=== PATIENT | female | born 1995 | race Caucasian/White ===

== ENCOUNTER 2021-08-30 09:33 | Emergency (ER) | payer OTHER ==
[~2021-08-30] VITALS: Ht 154.9 cm; Wt 51.7 kg
[2021-08-30 10:20] LABS: BILIRUBIN Negative (Negative); BLOOD Negative (Negative); CLARITY Cloudy (Clear); COLOR Yellow (Yellow); GLUCOSE Negative (Negative); KETONE Negative (Negative); LEUKO ESTERASE 1+ (Negative); NITRITE Negative (Negative); PH 5.5 (4.5-8.0); UROBILINOGEN 0.2 E.U./dl (0.0-1.0)
[2021-08-30 10:29] LABS: HEMATOCRIT 39.3 % (37.0-47.0); MEAN CELL VOLUME 92.3 fl (81.0-99.0); MEAN CORPUSCULAR HGB 29.3 pg (27.0-31.0); MEAN CORPUSCULAR HGB CONC 31.8 g/dl (33.0-37.0); MEAN PLATELET VOLUME 11.8 fl (9.6-12.3); PLATELET COUNT AUTOMATED 161 10*3/uL (130-400); RED BLOOD COUNT 4.26 10*6/uL (4.10-5.10); RED CELL DISTRI WIDTH 14.4 % (0-14.5); WHITE BLOOD COUNT 9.6 10*3/uL (4.8-10.8)
[2021-08-30 10:37] LABS: RBC 0-2 rbc/hpf (0-2)
[2021-08-30 10:38] LABS: BACTERIA 3+; EPITHELIAL CELLS 16-20
[2021-08-30 10:51] LABS: MANUAL DIFF REFLEX YES
[2021-08-30 10:56] LABS: BASOPHILS 1 % (0-1); PLATELET SUFFICIENCY NORMAL (NORMAL); TOTAL CELLS COUNTED 100 #CELLS
[2021-08-30 11:00] LABS: ALKALINE PHOSPHATASE 77 U/L (45-117); BUN 12 mg/dl (7-24); CHLORIDE 110 mmol/L (98-107); POTASSIUM 4.4 mmol/L (3.5-5.1); SGOT/AST 14 IU/L (3-35); SGPT/ALT 18 U/L (12-78); SODIUM 142 mmol/L (136-145); TOTAL PROTEIN 6.6 gm/dL (6.4-8.2)
== END 2021-08-30 13:14 | disposition home or self-care (01) ==
LOC: ED 09:33
PROVIDERS: Emergency Medicine
DX: R10.9 Unspecified abdominal pain (principal); F17.200 Nicotine dependence, unspecified, uncomplicated

== ENCOUNTER 2021-09-28 07:28 | Emergency (ER) | payer OTHER ==
[2021-09-28 07:51] LABS: BILIRUBIN Negative (Negative); BLOOD Negative (Negative); CLARITY Cloudy (Clear); COLOR Yellow (Yellow); GLUCOSE Negative (Negative); KETONE Negative (Negative); LEUKO ESTERASE 2+ (Negative); NITRITE Negative (Negative); PH 5.5 (4.5-8.0); UROBILINOGEN 0.2 E.U./dl (0.0-1.0)
[2021-09-28 07:59] LABS: BASO % 0.5 % (0.0-1.0); EOS # 0.1 10*3/uL (0.0-0.4); EOS % 0.8 % (1.0-4.0); HEMATOCRIT 40.5 % (37.0-47.0); LYMPH # 1.6 10*3/uL (1.3-4.4); LYMPH % 24.9 % (27.0-41.0); MEAN CELL VOLUME 91.6 fl (81.0-99.0); MEAN CORPUSCULAR HGB 29.2 pg (27.0-31.0); MEAN CORPUSCULAR HGB CONC 31.9 g/dl (33.0-37.0); MEAN PLATELET VOLUME 11.6 fl (9.6-12.3); MONO # 0.4 10*3/uL (0.1-1.0); MONO % 6.7 % (3.0-9.0); NEUT # 4.4 10*3/uL (2.3-7.9); NEUT % 66.8 % (47.0-73.0); PLATELET COUNT AUTOMATED 142 10*3/uL (130-400); RED BLOOD COUNT 4.42 10*6/uL (4.10-5.10); RED CELL DISTRI WIDTH 14.2 % (0-14.5); WHITE BLOOD COUNT 6.6 10*3/uL (4.8-10.8)
[2021-09-28 08:12] LABS: BACTERIA 3+; WBC 16-20 wbc/hpf (0-5)
[2021-09-28 08:13] LABS: RBC 0-2 rbc/hpf (0-2)
[2021-09-28 08:13] LABS: ALKALINE PHOSPHATASE 64 U/L (45-117); BUN 9 mg/dl (7-24); CHLORIDE 111 mmol/L (98-107); CREATININE 0.68 mg/dL (0.55-1.02); LIPASE 132 U/L (73-393); POTASSIUM 4.1 mmol/L (3.5-5.1); SGOT/AST 15 IU/L (3-35); SGPT/ALT 19 U/L (12-78); SODIUM 140 mmol/L (136-145); TOTAL PROTEIN 6.7 gm/dL (6.4-8.2)
[2021-09-28] MEDS ORDERED: NAPROXEN250 MG PO (08:50)
[2021-09-28] MEDS ORDERED: TYLENOL325 M1 PO (08:50)
[2021-10-01] MEDS ORDERED: DOXYCYCLINE50 M2 PO (13:13)
[2021-10-01] MEDS ORDERED: ASPIRIN CHEWABL81 MG PO (13:13)
[2021-10-01] MEDS ORDERED: ULTRAM50 MG PO (13:14)
== END 2021-09-28 08:54 | disposition home or self-care (01) ==
LOC: ED 07:28
PROVIDERS: Emergency Medicine
DX: R10.2 Pelvic and perineal pain (principal); R11.0 Nausea; N93.9 Abnormal uterine and vaginal bleeding, unspecified

== ENCOUNTER → 2021-10-01 | Day surgery (SDC) | payer OTHER ==
[~2021-10-01] VITALS: Wt 52.2 kg
[~2021-10-01] MED LIST: ASPIRIN CHEWABL81 MG PO; DOXYCYCLINE50 M2 PO; NAPROXEN250 MG PO; SEPTDS PO; TYLENOL325 M1 PO; ULTRAM50 MG PO
[2021-10-01 11:51] VITALS: BP 99/60
[2021-10-01 12:35] VITALS: BP 103/69
[2021-10-01 12:40] VITALS: BP 99/63
[2021-10-01 12:45] VITALS: BP 102/70
[2021-10-01 12:50] VITALS: BP 121/76
== END | disposition home or self-care (01) ==
LOC: ED 07:46 → SDC 12:58
PROVIDERS: ATTEND Podiatrist
DX: S91.201A Unspecified open wound of right great toe with damage to nail, initial encounter (principal); S92.421A Displaced fracture of distal phalanx of right great toe, initial encounter for closed fracture; W55.19XA Other contact with horse, initial encounter; Y93.89 Activity, other specified; Y92.89 Other specified places as the place of occurrence of the external cause; Y99.8 Other external cause status; Z91.040 Latex allergy status

== ENCOUNTER 2021-10-02 20:54 | Emergency (ER) | payer OTHER ==
[~2021-10-02] VITALS: Ht 154.9 cm; Wt 52.2 kg
[~2021-10-02 20:54] MED LIST changes: -SEPTDS PO
[2021-10-02] MEDS ORDERED: SEPTDS PO (22:03)
== END 2021-10-02 22:33 | disposition home or self-care (01) ==
LOC: ED 20:54
DX: L02.214 Cutaneous abscess of groin (principal); Z91.040 Latex allergy status; Z79.899 Other long term (current) drug therapy; Z79.82 Long term (current) use of aspirin; Z98.890 Other specified postprocedural states

== ENCOUNTER 2022-05-24 10:12 | Emergency (ER) | payer OTHER ==
[~2022-05-24] VITALS: Ht 154.9 cm; Wt 52.2 kg
[~2022-05-24 10:12] MED LIST changes: +SEPTDS PO
[2022-05-24 10:57] LABS: BASO % 0.5 % (0.0-1.0); EOS # 0.1 10*3/uL (0.0-0.4); EOS % 1.8 % (1.0-4.0); HEMATOCRIT 37.4 % (37.0-47.0); LYMPH # 1.9 10*3/uL (1.3-4.4); LYMPH % 34.3 % (27.0-41.0); MEAN CELL VOLUME 89.7 fl (81.0-99.0); MEAN CORPUSCULAR HGB 28.8 pg (27.0-31.0); MEAN CORPUSCULAR HGB CONC 32.1 g/dl (33.0-37.0); MEAN PLATELET VOLUME 11.5 fl (9.6-12.3); MONO # 0.5 10*3/uL (0.1-1.0); MONO % 9.5 % (3.0-9.0); NEUT # 2.9 10*3/uL (2.3-7.9); NEUT % 53.7 % (47.0-73.0); PLATELET COUNT AUTOMATED 195 10*3/uL (130-400); RED BLOOD COUNT 4.17 10*6/uL (4.10-5.10); RED CELL DISTRI WIDTH 14.8 % (0-14.5); WHITE BLOOD COUNT 5.5 10*3/uL (4.8-10.8)
[2022-05-24 11:11] LABS: ALKALINE PHOSPHATASE 57 U/L (46-116); BUN 6 mg/dl (9-23); CHLORIDE 111 mmol/L (98-107); POTASSIUM 4.2 mmol/L (3.4-5.1); SGPT/ALT 14 U/L (10-49); TOTAL PROTEIN 6.9 gm/dL (6.0-8.0)
[2022-05-24] MEDS ORDERED: IBU800 M2 PO (12:11)
[2022-05-24] MEDS ORDERED: REGLAN10 M1 PO (12:11)
== END 2022-05-24 12:20 | disposition home or self-care (01) ==
LOC: ED 10:12
PROVIDERS: Emergency Medicine
DX: R51.9 Headache, unspecified (principal); Z91.040 Latex allergy status; Z98.890 Other specified postprocedural states